=== PATIENT | male | born 1970 | race Caucasian/White ===

== ENCOUNTER 2017-04-30 17:30 | Emergency (ER) | payer OTHER ==
--- NOTE | 2017-04-30 18:14 | ERNOTE ---
Psychological HPI - Date Date of Service: 04/30/17 - General Chief Complaint: Psychiatric Problem Source: Reports: patient Exam Limitations: Reports: clinical condition - Immun/Allergies/Home Medications Allergies/Adverse Reactions: Allergies No Known Allergies Allergy (Unverified 04/30/17 17:47) Home Medications: HOME MEDICATIONS NK [No Home Medication] 04/30/17 [Last Taken Unknown] - History of Present Illness Narrative: Pt presents after arrest by the police. After arrest he stated that he was suicidal and that the world was going to end. He later stated that he was never suicidal but was avoiding senior care. He admits to daily methamphetamine use for several weeks. He sts that he has been thru rehab 9 times. He sts that he is disappointed that he keeps going back to drugs but again is not currently suicidal. Time Seen by Provider: 04/30/17 18:10 Date (Duration): 04/30/17 Arrived by: Reports: police Onset/duration: Reports: sudden onset, gone now Intent: Reports: wants to escape Mechanism: Denies: overdose, incision, stab wound, ingestion Situational Problems: Reports: spouse Associated Symptoms: Reports: depressed, frustrated. Denies: suicidal thoughts Review of Systems - Review of Systems Constitutional: Present: weight loss, other - pt has not been eating EYE: Present: no symptoms reported ENT: Present: no symptoms reported Respiratory: Present: no symptoms reported Cardiology: Present: no symptoms reported Gastrointestinal/Abdominal: Present: drinking less Genitourinary: Present: no symptoms reported Musculoskeletal: Present: no symptoms reported Skin: Present: no symptoms reported Neurological: Present: no symptoms reported Endocrine: Present: no symptoms reported Hematologic/Lymphatic: Present: no symptoms reported Psych: Present: no symptoms reported All Other Systems: All systems neg except as marked - Patient's Past Medical History Patient History - Medical: Anxiety, Depression Patient History - Cardiac/Respiratory: No pertinent hx Patient History - Cancer: No Hx of Cancer Patient History - Surgical Procedures: No surgical history - Social History Smoking Status: Current every day smoker Have you smoked in the past 12 months: Yes - Immunizations Immunizations Up to Date: No Psychological Exam - Exam General Appearance: Present: alert, mild distress, anxious Head Exam: Present: normal inspection Neurological: Present: alert, oriented x 3, anxious Thoughts/Hallucinations: Present: other - Pt briefly spoke of the end of the world but could not articulate any plan for suicide Behavior/Eye Contact/Speech: Present: cooperative, good eye contact, normal speech ENT Exam normal except (see below): Yes Ears, Nose, Throat: Present: normal ENT inspection Neck: Present: normal inspection Respiratory: Present: no respiratory distress Cardiovascular/Chest: Present: regular rate, rhythm Extremity Exam: Present: normal inspection Skin Exam: Present: normal color Lymphatic Exam: Present: no adenopathy ED Progress - Results and Orders Patient's Lab Results:: I have reviewed the patient's lab results. - Vital Signs Patient's Vital Signs:: I have reviewed the patient's vital signs. Vital Signs: Vital Signs 04/30/17 17:42 Temperature 37 C Pulse Rate 73 Respiratory 14 Rate Blood Pressure 140/87 O2 Sat by Pulse 100 Oximetry - Progress/Reassessment Chief Complaint: Psychiatric Problem Plan - Plan Plan: Pt is to be released to the police as he is not suicidal. Drugs of abuse screen is not available secondary to equipment failure, however the pt has already admitted to his drug use and illegal behavior Departure Clinical Impression: Drug abuse and dependence - Departure Disposition: [facility] Condition: Good Instructions: Stimulant Use Disorder-Amphetamines
[2017-04-30 19:00] LABS: Hematocrit 43.4 % (42.0-52.0); Hemoglobin 15.1 gm/dL (13.5-18.0); Mean Cell Volume 89.7 fl (78-100); Mean Corpuscular Hemoglobin 31.2 pg (27-31); Mean Corpuscular Hgb Conc 34.8 g/dl (32-36); Mean Platelet Volume 9.7 fl (6.0-9.5); Neutrophil # 4.3 K/mm3 (1.3-6.0); Neutrophil % 62.7 % (42-75.0); Platelet Count 261 K/mm3 (150-450); Red Blood Count 4.84 M/mm3 (4.7-6.0); Red Cell Distribution Width 12.1 % (11.5-14.0); White Blood Count 6.8 K/mm3 (4.0-10.5)
[2017-04-30 19:15] LABS: Albumin * 4.2 gm/dl (3.4-5.0); Anion Gap 12.7 mmol/L (6.8-13.8); BUN/Creatinine Ratio 11.3 (9.0-21.6); Bilirubin, Total 1.7 mg/dL (0.0-1.1); Ca. Corrected For Albumin 8.7 mg/dL (8.4-10.2); Calcium * 9.2 mg/dL (7.9-10.9); Carbon Dioxide 27.8 mmol/L (24-32.6); Potassium 3.5 mmol/L (3.4-4.6)
[2017-04-30] MEDS ORDERED: ALPRAZolam 0.25 MG TABLET PO ONE (19:32)
[2017-04-30] MEDS ORDERED: ALPRAZolam 0.25 MG TABLET ONE (19:37)
[2017-04-30 19:53] VITALS: BP 136/80
== END 2017-04-30 19:45 ==
LOC: ER 17:30
DX: F15.10 Other stimulant abuse, uncomplicated (principal); F17.200 Nicotine dependence, unspecified, uncomplicated